=== PATIENT | female | born 1985 | race Caucasian/White ===

== ENCOUNTER 2018-08-22 03:10 | Emergency (ER) | payer SELFPAY ==
[2018-08-22 03:23] VITALS: BMI 26.6
[2018-08-22 03:26] VITALS: BP 110/61; PULSE 87; RESP 18; TEMP 97; O2SAT 100
--- NOTE | 2018-08-22 03:29 | ED PDOC ---
HPI: Psych/Substance Abuse Time Seen by Provider: 08/22/18 03:20 Chief Complaint (Nursing): Psychiatric Evaluation Chief Complaint (Provider): Psychiatric Evaluation ED Caveat: Uncooperative (Pt indicated that she has been since the age of [age] and needs help taking care of her . I asked her how she knew she was and she indicated she just knows. I suggested a test and the patient got out of the stretcher and said she was leaving because this hospital does not give the type of spiritual help that she needs. ) Past Medical History Reviewed: Historical Data, Nursing Documentation, Vital Signs Vital Signs: Last Vital Signs Temp 97.0 F L 08/22/18 03:22 Pulse 87 08/22/18 03:22 Resp 18 08/22/18 03:22 BP 110/61 08/22/18 03:22 Pulse Ox 100 08/22/18 03:22 - Medical History PMH: Asthma - Family History Family History: States: Unknown Family Hx - Immunization History Hx Tetanus Toxoid Vaccination: No Hx Influenza Vaccination: No Hx Pneumococcal Vaccination: No - Home Medications Home Medications: Ambulatory Orders Medication Instructions Recorded No Known Home Med 09/26/13 - Allergies Allergies/Adverse Reactions: Allergies Allergy/AdvReac Type Severity Reaction Status Date / Time No Known Allergies Allergy Unverified 08/22/18 03:22 Review of Systems Review Of Systems: ROS cannot be obtained secondary to pt's inabilty to answer questions. - ECG O2 Sat by Pulse Oximetry: 100 Disposition - Clinical Impression Clinical Impression: Left before treatment completed - Patient ED Disposition Is Patient to be Admitted: No - Disposition Disposition: Left W/O Treatment Disposition Time: 03:30 Condition: STABLE
== END 2018-08-22 03:25 | disposition home or self-care (01) ==
LOC: H.ER 03:10
DX: Z00.8 Encounter for other general examination (principal); J45.909 Unspecified asthma, uncomplicated